=== PATIENT | female | born 1995 | race Caucasian/White ===

== ENCOUNTER 2018-01-20 15:17 | Emergency (ER) | payer SELFPAY, OTHER ==
[2018-01-20] MEDS: KETOROLAC 60 MG INJ IM (19:07)
== END 2018-01-20 19:51 | disposition home or self-care (01) ==
LOC: FTE 15:17
DX: S06.0X0A Concussion without loss of consciousness, initial encounter (principal); V49.40XA Driver injured in collision with unspecified motor vehicles in traffic accident, initial encounter
CPT/HCPCS: 70450; 96372; 99285-25

== ENCOUNTER 2018-04-12 16:13 | Emergency (ER) | payer OTHER | END 2018-04-12 17:47 | disposition home or self-care (01) | LOC: E/R 16:13 | DX: S89.91XA Unspecified injury of right lower leg, initial encounter (principal); F17.210 Nicotine dependence, cigarettes, uncomplicated; W18.39XA Other fall on same level, initial encounter; Y92.9 Unspecified place or not applicable | CPT/HCPCS: 73562; 99283-25 ==